=== PATIENT | female | born 1970 | race Caucasian/White ===

== ENCOUNTER → 2016-11-30 | Outpatient (CLI) | payer SELFPAY ==
[~2016-11-30] MED LIST: ASPIRIN81 M1 PO; BAYER ASPIRIN C81 MG PO; FLEXERIL5 MG PO; HYDROCODONE BIT1 T11 PO; VOLTAREN50 M1 PO; WELLBUTRIN SR150 MG PO; WELLBUTRIN XL300 MG PO
--- NOTE | ~2016-11-30 | HM ---
[place], [place] HOLTER MONITOR REPORT NAME: MAYRA HERNANDEZ UNIT #: [id number] ROOM: DOCTOR: EMMA HOLDER,JIMY BIRTHDATE: [birth year] DOS: 12/03/2016 The patient remained in sinus rhythm throughout the entire period. Minimum heart rate is 50, maximum heart is 140, average is 79 beats per minute. No significant ventricular or supraventricular dysrhythmia. One episode of sinus tachycardia. FINAL IMPRESSION: Sinus rhythm with one episode of sinus tachycardia. No ventricular or supraventricular dysrhythmia. No significant pauses. JIMY CARTER MD CM:HOLTER:HOLTER MONITOR REPORT [id number] JIMY CARTER MD
== END ==
LOC: CARD 10:30
DX: R42 Dizziness and giddiness (principal); R00.2 Palpitations

== ENCOUNTER → 2018-05-30 | Outpatient (CLI) | payer SELFPAY ==
[2018-05-30 13:07] LABS: ALBUMIN 3.8 gm/dl (3.1-4.5); BUN 10 mg/dl (7-24); CHLORIDE 110 mmol/L (98-107); CHOLESTEROL 215 mg/dL (<200); CREATININE 0.66 mg/dL (0.55-1.02); HDL CHOLESTEROL 33 mg/dl (40-60); LDL CHOLESTEROL 154 mg/dL (9-159); POTASSIUM 4.1 mmol/L (3.5-5.1); SGOT/AST 9 IU/L (3-35); SODIUM 143 mmol/L (136-145); TRIGLYCERIDES 139 mg/dl (<150); VLDL CHOLESTEROL 28 mg/dL (6-40)
[2018-05-30 13:17] LABS: ALKALINE PHOSPHATASE 69 U/L (45-117); SGPT/ALT 15 U/L (12-78); TOTAL PROTEIN 7.5 gm/dL (6.4-8.2)
== END | disposition home or self-care (01) ==
LOC: LAB 11:46
PROVIDERS: Nurse Practitioner Family
DX: E78.00 Pure hypercholesterolemia, unspecified (principal); E03.9 Hypothyroidism, unspecified; E66.9 Obesity, unspecified

== ENCOUNTER → 2018-06-03 | Outpatient (CLI) | payer SELFPAY | END | disposition home or self-care (01) | LOC: LAB 15:26 | DX: E03.9 Hypothyroidism, unspecified (principal) ==

== ENCOUNTER → 2018-10-24 | Outpatient (CLI) | payer SELFPAY | END | disposition home or self-care (01) | LOC: RESCLI 03:29 | DX: E03.9 Hypothyroidism, unspecified (principal); F41.9 Anxiety disorder, unspecified; F32.9 Major depressive disorder, single episode, unspecified; E66.9 Obesity, unspecified; E78.00 Pure hypercholesterolemia, unspecified; E55.9 Vitamin D deficiency, unspecified; F17.210 Nicotine dependence, cigarettes, uncomplicated; Z79.899 Other long term (current) drug therapy; Z88.8 Allergy status to other drugs, medicaments and biological substances ==